=== PATIENT | male | born 1940 | race Two or more races ===

== ENCOUNTER 2016-10-30 16:07 | Emergency (ER) | payer OTHER ==
[~2016-10-30] VITALS: Ht 167.6 cm; Wt 84.0 kg
[~2016-10-30 16:07] MED LIST: ALPHAGAN P100 DROP/5 BOTH EYES; ALTACE10 MG PO; ASPIRIN81 M2 PO; ATENOLOL100 MG PO; ATENOLOL50 MG PO; Aspirin E.C. PO; B COMPLETE1 EACH PO; DAILY VITAMIN1 EAC8 PO; IMDUR30 MG PO; ISOSORBIDE MONO30 MG PO; LIPITOR10 MG PO; LUMIGAN 0.50 DROP/22 BOTH EYES; MOTRIN IB200 MG PO; NITROSTAT0.4 MG SL; NORVASC10 MG PO; PRED FORTE100 DROP/5 BOTH EYES; SINEMET 25-1001 EACH PO; TENORMIN100 MG PO; TENORMIN50 MG PO
[2016-10-30 17:34] LABS: CHLORIDE 106 mEq/L (99-109); POTASSIUM 4.6 mEq/L (3.7-5.4); SODIUM 138 mEq/L (136-147)
[2016-10-30 17:36] LABS: GLUCOSE 91 mg/dL (70-99)
[2016-10-30 17:37] LABS: ANION GAP 10 MEQ/L (2-14)
[2016-10-30 17:40] LABS: GFR ESTIMATE (CALCULATED) > 59 mL/min/
[2016-10-30 17:41] LABS: UREA NITROGEN (BUN) 28 mg/dL (9-23)
[2016-10-30 17:42] LABS: CREATINE KINASE 127 IU/L (1-294)
[2016-10-30] MEDS ORDERED: ULTRAM50 MG PO (18:06)
[2016-10-30] MEDS ORDERED: MOTRIN600 MG PO (18:06)
[2016-10-30 18:26] VITALS: BP 160/93
== END 2016-10-30 18:27 | disposition home or self-care (01) ==
LOC: EME 16:07
PROVIDERS: Physician Assistant
DX: S76.112A Strain of left quadriceps muscle, fascia and tendon, initial encounter (principal); E78.5 Hyperlipidemia, unspecified; I10 Essential (primary) hypertension; I25.2 Old myocardial infarction
CPT/HCPCS: 80048; 82550; 99281; 99283; J3010

== ENCOUNTER 2017-03-31 17:24 | Emergency (ER) | payer OTHER ==
[~2017-03-31] VITALS: Ht 167.6 cm; Wt 85.9 kg
[~2017-03-31 17:24] MED LIST changes: +MOTRIN600 MG PO; +ULTRAM50 MG PO
[2017-03-31 18:41] LABS: HEMATOCRIT 44.3 % (38.0-50.0); MCH 27.9 PG (29.0-34.0); MCHC 33.4 G/DL (30.0-36.0); MCV 83.6 FL (86-99); MEAN PLAT.VOLUME 9.4 uM^3 (9.0-12.4); PLATELET COUNT 279 K/uL (156-360); RBC DIS.WIDTH-CV 12.6 % (11.8-14.6); RBC DIS.WIDTH-SD 38.1 % (39-53); WHITE BLOOD COUNT 6.5 K/uL (4.1-10.2)
[2017-03-31 18:53] LABS: CHLORIDE 105 mEq/L (99-109); POTASSIUM 4.1 mEq/L (3.7-5.4); SODIUM 136 mEq/L (136-147)
[2017-03-31 18:55] LABS: GLUCOSE 93 mg/dL (70-99)
[2017-03-31 18:56] LABS: ANION GAP 11 MEQ/L (2-14)
[2017-03-31 18:57] LABS: TOTAL BILIRUBIN 0.3 mg/dL (0.0-1.0)
[2017-03-31 18:59] LABS: ALKALINE PHOSPHATASE 69 IU/L (3-129); GFR ESTIMATE (CALCULATED) > 59 mL/min/
[2017-03-31 19:00] LABS: UREA NITROGEN (BUN) 14 mg/dL (9-23)
[2017-03-31 19:11] LABS: ADD MIUA? YES; BILIRUBIN NEGATIVE; BLOOD SMALL; COLOR COLORLESS ((YELLOW)); GLUCOSE (STRIP) NEGATIVE; KETONES NEGATIVE; LEUKOCYTES NEGATIVE; NITRITE NEGATIVE; PROTEIN (STRIP) NEGATIVE; SPECIFIC GRAVITY 1.006 (1.000-1.030); UROBILINOGEN 0.2 MG/DL (0.2-1.0)
[2017-03-31 19:16] LABS: TROP-I INTERPRETATION NEGATIVE; TROPONIN-I < 0.01 ng/mL (0.0-0.30)
[2017-03-31 19:33] LABS: BACTERIA NONE SEEN /HPF; EPITHELIAL CELLS NONE SEEN /HPF; HYALINE CASTS 0-5 /LPF; MUCUS NONE SEEN /LPF; RED BLOOD CELLS 0-5 /HPF (0-5); UCUL ADDED? NO; WHITE BLOOD CELLS NONE SEEN /HPF (0-5)
[2017-03-31 20:40] VITALS: BP 186/93
== END 2017-03-31 20:45 | disposition home or self-care (01) ==
LOC: EME 17:24
PROVIDERS: Emergency Medicine
DX: G20 Parkinson's disease (principal); R53.1 Weakness; I25.2 Old myocardial infarction; I10 Essential (primary) hypertension; Z95.5 Presence of coronary angioplasty implant and graft; Z88.6 Allergy status to analgesic agent; Z87.891 Personal history of nicotine dependence
CPT/HCPCS: 70450; 71010; 80053; 81003; 84484; 85027; 99281; 99285

== ENCOUNTER 2017-05-24 17:09 | Inpatient (IN) | payer OTHER ==
[~2017-05-24] VITALS: Ht 167.6 cm; Wt 75.3 kg
[2017-05-24] MEDS ORDERED: NORVASC5 MG PO (18:06)
[2017-05-24] MEDS ORDERED: PRAVACHOL40 MG PO (18:07)
[2017-05-24] MEDS ORDERED: COMBIGAN O20 DROP/5 BOTH EYES (18:09)
[2017-05-24] MEDS ORDERED: XALATAN2.5 ML BOTH EYES (18:09)
[2017-05-24 18:10] LABS: EOSINOPHIL (%) 0.2 % (0-5); HEMATOCRIT 43.7 % (38.0-50.0); IMMATURE GRANULOCYTE (%) 0.3 % (0.0-0.7); INSTRUMENT ABS NEUTROPHIL CT 10.5 K/uL; LYMPHOCYTE COUNT 0.8 K/uL (1.0-2.8); MCHC 33.4 G/DL (30.0-36.0); MCV 83.7 FL (86-99); MEAN PLAT.VOLUME 9.2 uM^3 (9.0-12.4); MONOCYTE (%) 7.1 % (3-12); MONOCYTE COUNT 0.9 K/uL (0-0.8); NEUTROPHIL (%) 85.6 % (45-76); NEUTROPHIL COUNT 10.5 K/uL (1.8-6.4); PLATELET COUNT 243 K/uL (156-360); RBC DIS.WIDTH-CV 12.7 % (11.8-14.6); RBC DIS.WIDTH-SD 38.7 % (39-53); RED BLOOD COUNT 5.22 M/uL (4.00-5.50); WHITE BLOOD COUNT 12.3 K/uL (4.1-10.2)
[2017-05-24] MEDS ORDERED: COSOPT EYE DROPS5 ML BOTH EYES (18:10)
[2017-05-24 18:18] LABS: CHLORIDE 102 mEq/L (99-109); POTASSIUM 4.3 mEq/L (3.7-5.4); SODIUM 136 mEq/L (136-147)
[2017-05-24 18:20] LABS: GLUCOSE 117 mg/dL (70-99)
[2017-05-24 18:21] LABS: ANION GAP 13 MEQ/L (2-14)
[2017-05-24 18:22] LABS: TOTAL BILIRUBIN 0.8 mg/dL (0.0-1.0)
[2017-05-24 18:23] LABS: ALKALINE PHOSPHATASE 68 IU/L (3-129)
[2017-05-24 18:24] LABS: GFR ESTIMATE (CALCULATED) 53 mL/min/
[2017-05-24 18:25] LABS: UREA NITROGEN (BUN) 26 mg/dL (9-23)
[2017-05-24 18:27] LABS: LIPASE 53 U/L (1.0-51.0)
[2017-05-24 20:08] LABS: ADD MIUA? NO; BILIRUBIN NEGATIVE; BLOOD NEGATIVE; COLOR YELLOW ((YELLOW)); GLUCOSE (STRIP) NEGATIVE; KETONES NEGATIVE; LEUKOCYTES NEGATIVE; NITRITE NEGATIVE; PROTEIN (STRIP) NEGATIVE; SPECIFIC GRAVITY 1.023 (1.000-1.030); UCUL ADDED? NO; UROBILINOGEN 0.2 MG/DL (0.2-1.0)
[2017-05-24 23:06] LABS: INTER. NORMALIZED RATIO 1.1; PROTHROMBIN TIME 12.2 SEC (10.2-12.9)
[2017-05-24 23:50] VITALS: BP 133/65
[2017-05-24 23:54] LABS: TROP-I INTERPRETATION NEGATIVE; TROPONIN-I < 0.01 ng/mL (0.0-0.30)
[2017-05-25 03:13] LABS: HEMATOCRIT 40.2 % (38.0-50.0); MCH 28.3 PG (29.0-34.0); MCHC 33.6 G/DL (30.0-36.0); MCV 84.3 FL (86-99); MEAN PLAT.VOLUME 9.5 uM^3 (9.0-12.4); PLATELET COUNT 246 K/uL (156-360); RBC DIS.WIDTH-CV 12.9 % (11.8-14.6); RBC DIS.WIDTH-SD 39.8 % (39-53); RED BLOOD COUNT 4.77 M/uL (4.00-5.50); WHITE BLOOD COUNT 14.1 K/uL (4.1-10.2)
[2017-05-25 03:55] LABS: TROP-I INTERPRETATION NEGATIVE; TROPONIN-I 0.01 ng/mL (0.0-0.30)
[2017-05-25 04:25] VITALS: BP 135/64
[2017-05-25 05:34] LABS: INTER. NORMALIZED RATIO 1.2; PROTHROMBIN TIME 13.7 SEC (10.2-12.9)
[2017-05-25 08:23] VITALS: BP 108/57
[2017-05-25 08:56] LABS: ANION GAP 12 MEQ/L (2-14); CHLORIDE 102 MEQ/L (99-109); SAMPLE HEMOLYSIS CHECK 0; SAMPLE ICTERIC CHECK 0; SAMPLE LIPEMIA CHECK 0; SODIUM 135 MEQ/L (136-147)
[2017-05-25 09:02] LABS: GFR ESTIMATE (CALCULATED) > 59 mL/min/; GLUCOSE 106 mg/dL (70-99); UREA NITROGEN (BUN) 21 mg/dL (9-23)
[2017-05-25 11:04] LABS: TROP-I INTERPRETATION NEGATIVE; TROPONIN-I 0.01 ng/mL (0.0-0.30)
[2017-05-25 11:43] VITALS: BP 110/55
[2017-05-25 15:30] VITALS: BP 115/57
[2017-05-25 20:09] VITALS: BP 145/72
[2017-05-25 23:18] VITALS: BP 160/70
[2017-05-26 07:30] VITALS: BP 141/72
[2017-05-26 09:31] LABS: INTER. NORMALIZED RATIO 1.3; PROTHROMBIN TIME 14.6 SEC (10.2-12.9)
[2017-05-26 10:51] VITALS: BP 170/81
[2017-05-26 15:51] VITALS: BP 173/77
[2017-05-26 20:05] VITALS: BP 149/69
[2017-05-26 23:23] VITALS: BP 176/74
[2017-05-27 03:52] VITALS: BP 143/77
[2017-05-27 07:03] LABS: MCH 29.2 PG (29.0-34.0); MCHC 34.2 G/DL (30.0-36.0); MCV 85.5 FL (86-99); MEAN PLAT.VOLUME 9.7 uM^3 (9.0-12.4); PLATELET COUNT 206 K/uL (156-360); RBC DIS.WIDTH-SD 40.2 % (39-53); RED BLOOD COUNT 4.21 M/uL (4.00-5.50); WHITE BLOOD COUNT 7.5 K/uL (4.1-10.2)
[2017-05-27 07:14] LABS: INTER. NORMALIZED RATIO 1.4; PROTHROMBIN TIME 15.9 SEC (10.2-12.9)
[2017-05-27 07:17] LABS: PTT 40.4 SEC (25-37)
[2017-05-27 08:10] VITALS: BP 132/76
[2017-05-27 12:00] VITALS: BP 161/83
[2017-05-27 15:52] VITALS: BP 130/74
[2017-05-27 20:07] VITALS: BP 156/76
[2017-05-27 23:44] VITALS: BP 151/71
[2017-05-28 04:10] VITALS: BP 141/68
[2017-05-28 06:33] LABS: INTER. NORMALIZED RATIO 1.6; PROTHROMBIN TIME 17.9 SEC (10.2-12.9)
[2017-05-28 06:47] LABS: ANION GAP 5 MEQ/L (2-14); CHLORIDE 102 MEQ/L (99-109); GFR ESTIMATE (CALCULATED) > 59 mL/min/; GLUCOSE 92 mg/dL (70-99); POTASSIUM 3.9 MEQ/L (3.7-5.4); SAMPLE HEMOLYSIS CHECK 0; SAMPLE ICTERIC CHECK 0; SAMPLE LIPEMIA CHECK 0; SODIUM 135 MEQ/L (136-147); UREA NITROGEN (BUN) 16 mg/dL (9-23)
[2017-05-28 08:39] VITALS: BP 135/68
[2017-05-28 10:46] VITALS: BP 132/69
[2017-05-28 20:03] VITALS: BP 128/69
[2017-05-28 23:45] VITALS: BP 152/72
[2017-05-29 06:23] LABS: HEMATOCRIT 37.6 % (38.0-50.0); MCH 28.2 PG (29.0-34.0); MCV 85.5 FL (86-99); MEAN PLAT.VOLUME 9.5 uM^3 (9.0-12.4); PLATELET COUNT 265 K/uL (156-360); RBC DIS.WIDTH-CV 12.8 % (11.8-14.6); RBC DIS.WIDTH-SD 39.8 % (39-53); WHITE BLOOD COUNT 7.5 K/uL (4.1-10.2)
[2017-05-29 08:24] VITALS: BP 107/62
[2017-05-29] MEDS ORDERED: CLOPIDOGREL75 MG PO (14:22)
[2017-05-29] MEDS ORDERED: QUETIAPINE FUMA25 MG PO (14:24)
[2017-05-29] MEDS ORDERED: SERTRALINE HCL25 MG PO (14:24)
== END 2017-05-29 17:36 | disposition home health service (06) | DRG 699 ==
LOC: EME 17:09 → 4EAST 21:50 → EDOF 21:50 → ENRESERV 21:52 → 4EAST 23:34 → CANRESERV 05-26 08:29 → ENRESERV 05-26 08:29 → 5SOUTH 05-26 10:21
PROVIDERS: Emergency Medicine; Hospitalist; Internal Medicine; Internal Medicine Nephrology
DX: N28.0 Ischemia and infarction of kidney (principal); N17.9 Acute kidney failure, unspecified; F33.9 Major depressive disorder, recurrent, unspecified; R65.10 Systemic inflammatory response syndrome (SIRS) of non-infectious origin without acute organ dysfunction; F05 Delirium due to known physiological condition; E78.00 Pure hypercholesterolemia, unspecified; G20 Parkinson's disease; F41.9 Anxiety disorder, unspecified; H40.9 Unspecified glaucoma; H26.9 Unspecified cataract; H54.62 Unqualified visual loss, left eye, normal vision right eye; I34.0 Nonrheumatic mitral (valve) insufficiency; I36.1 Nonrheumatic tricuspid (valve) insufficiency; E66.9 Obesity, unspecified; I25.10 Atherosclerotic heart disease of native coronary artery without angina pectoris; I35.0 Nonrheumatic aortic (valve) stenosis; I73.9 Peripheral vascular disease, unspecified; N18.2 Chronic kidney disease, stage 2 (mild); I12.9 Hypertensive chronic kidney disease with stage 1 through stage 4 chronic kidney disease, or unspecified chronic kidney disease; B34.9 Viral infection, unspecified; Z68.31 Body mass index [BMI] 31.0-31.9, adult; Z79.01 Long term (current) use of anticoagulants; Z95.5 Presence of coronary angioplasty implant and graft; Z88.6 Allergy status to analgesic agent; I25.2 Old myocardial infarction; Z79.82 Long term (current) use of aspirin; Z87.891 Personal history of nicotine dependence
CPT/HCPCS: 70450; 71555; 74177; 80048; 80053; 81003; 83605; 83615; 83690; 84484; 85025; 85027; 85610; 85730; 87040; 87086; 93005; 93306; 99281; 99285; J0696; J7030; J7050

== ENCOUNTER 2017-11-28 06:58 | Emergency (ER) | payer OTHER ==
[~2017-11-28] VITALS: Ht 167.6 cm; Wt 81.9 kg
[~2017-11-28 06:58] MED LIST changes: +CLOPIDOGREL75 MG PO; +COMBIGAN O20 DROP/5 BOTH EYES; +COSOPT EYE DROPS5 ML BOTH EYES; +NORVASC5 MG PO; +PRAVACHOL40 MG PO; +QUETIAPINE FUMA25 MG PO; +SERTRALINE HCL25 MG PO; +XALATAN2.5 ML BOTH EYES
[2017-11-28 07:46] LABS: BASOPHIL (%) 0.8 % (0-1); BASOPHIL COUNT 0.1 K/uL (0-0.1); EOSINOPHIL (%) 3.9 % (0-5); EOSINOPHIL COUNT 0.2 K/uL (0-0.3); HEMATOCRIT 44.7 % (38.0-50.0); HEMOGLOBIN 14.9 G/DL (12.5-16.6); IMMATURE GRANULOCYTE (%) 0.2 % (0.0-0.7); LYMPHOCYTE (%) 29.8 % (15-42); LYMPHOCYTE COUNT 1.8 K/uL (1.0-2.8); MCH 28.3 PG (29.0-34.0); MCHC 33.3 G/DL (30.0-36.0); MONOCYTE (%) 8.5 % (3-12); MONOCYTE COUNT 0.5 K/uL (0-0.8); NEUTROPHIL (%) 56.8 % (45-76); NEUTROPHIL COUNT 3.4 K/uL (1.8-6.4); PLATELET COUNT 232 K/uL (156-360); RBC DIS.WIDTH-CV 12.8 % (11.8-14.6); RBC DIS.WIDTH-SD 39.4 % (39-53); RED BLOOD COUNT 5.26 M/uL (4.00-5.50); WHITE BLOOD COUNT 5.9 K/uL (4.1-10.2)
[2017-11-28 08:10] LABS: CHLORIDE 103 MEQ/L (99-109); POTASSIUM 4.3 MEQ/L (3.7-5.4); SODIUM 138 MEQ/L (136-147)
[2017-11-28 08:16] LABS: GFR ESTIMATE (CALCULATED) > 59 mL/min/ (58.99-99999); GLUCOSE 99 mg/dL (70-99); UREA NITROGEN (BUN) 23 mg/dL (9-23)
[2017-11-28 09:55] VITALS: BP 165/80
== END 2017-11-28 11:19 | disposition home or self-care (01) ==
LOC: EME 06:58
PROVIDERS: Emergency Medicine
DX: R07.0 Pain in throat (principal); R13.10 Dysphagia, unspecified; G20 Parkinson's disease; I10 Essential (primary) hypertension; E78.5 Hyperlipidemia, unspecified; I25.2 Old myocardial infarction; Z95.5 Presence of coronary angioplasty implant and graft; Z79.82 Long term (current) use of aspirin; Z87.891 Personal history of nicotine dependence
CPT/HCPCS: 70360; 71045; 80048; 85025; 87651 90; 93005; 99281; 99285

== ENCOUNTER 2018-02-14 13:10 | Inpatient (IN) | payer OTHER ==
[~2018-02-14] VITALS: Ht 167.6 cm; Wt 87.4 kg
[2018-02-14 14:25] LABS: BASOPHIL (%) 0.7 % (0-1); EOSINOPHIL COUNT 0.1 K/uL (0-0.3); HEMATOCRIT 45.2 % (38.0-50.0); HEMOGLOBIN 15.2 G/DL (12.5-16.6); IMMATURE GRANULOCYTE (%) 0.3 % (0.0-0.7); LYMPHOCYTE (%) 29.5 % (15-42); LYMPHOCYTE COUNT 1.8 K/uL (1.0-2.8); MCH 28.4 PG (29.0-34.0); MCHC 33.6 G/DL (30.0-36.0); MCV 84.5 FL (86-99); MONOCYTE (%) 8.7 % (3-12); MONOCYTE COUNT 0.5 K/uL (0-0.8); NEUTROPHIL (%) 58.8 % (45-76); NEUTROPHIL COUNT 3.6 K/uL (1.8-6.4); PLATELET COUNT 262 K/uL (156-360); RBC DIS.WIDTH-CV 13.2 % (11.8-14.6); RBC DIS.WIDTH-SD 40.9 % (39-53); RED BLOOD COUNT 5.35 M/uL (4.00-5.50); WHITE BLOOD COUNT 6.1 K/uL (4.1-10.2)
[2018-02-14 14:31] LABS: INTER. NORMALIZED RATIO 1.1
[2018-02-14 14:32] LABS: ALBUMIN 4.4 g/dL (3.2-4.8); CHLORIDE 107 mEq/L (99-109); POTASSIUM 4.5 mEq/L (3.7-5.4); SODIUM 140 mEq/L (136-147)
[2018-02-14 14:35] LABS: GLUCOSE 98 mg/dL (70-99); TOTAL PROTEIN 7.7 g/dL (6.4-8.3)
[2018-02-14 14:37] LABS: TOTAL BILIRUBIN 0.5 mg/dL (0.0-1.0)
[2018-02-14 14:38] LABS: ALKALINE PHOSPHATASE 66 IU/L (3-129); CREATININE 1.2 mg/dL (0.6-1.3); GFR ESTIMATE (CALCULATED) > 59 mL/min/ (58.99-99999)
[2018-02-14 14:39] LABS: UREA NITROGEN (BUN) 29 mg/dL (9-23)
[2018-02-14 14:40] LABS: AST (GOT) 25 IU/L (2-34)
[2018-02-14 14:41] LABS: ALT (GPT) 23 IU/L (3-49)
[2018-02-14 16:29] LABS: APPEARANCE CLEAR ((CLEAR)); BILIRUBIN NEGATIVE; BLOOD SMALL; COLOR YELLOW ((YELLOW)); GLUCOSE (STRIP) NEGATIVE; KETONES NEGATIVE; LEUKOCYTES NEGATIVE; NITRITE NEGATIVE; PROTEIN (STRIP) NEGATIVE; SPECIFIC GRAVITY 1.024 (1.000-1.030); UROBILINOGEN 0.2 MG/DL (0.2-1.0)
[2018-02-14 16:34] LABS: BACTERIA NONE SEEN /HPF; EPITHELIAL CELLS NONE SEEN /HPF; MUCUS TRACE /LPF; UCUL ADDED? NO; WHITE BLOOD CELLS 0-5 /HPF (0-5)
[2018-02-14] MEDS ORDERED: ROXICODONE5 MG PO (17:13)
[2018-02-14] MEDS ORDERED: BACLOFEN10 MG PO (17:13)
[2018-02-14] MEDS ORDERED: CENTRUM SILVER1 EAC3 PO (17:13)
[2018-02-14] MEDS ORDERED: COQ-10100 MG PO (17:14)
[2018-02-14 18:19] VITALS: BP 163/79
[2018-02-15 00:34] VITALS: BP 137/65
[2018-02-15 06:54] LABS: HEMATOCRIT 40.2 % (38.0-50.0); MCH 27.5 PG (29.0-34.0); MCHC 32.3 G/DL (30.0-36.0); PLATELET COUNT 238 K/uL (156-360); RBC DIS.WIDTH-CV 13.2 % (11.8-14.6); RBC DIS.WIDTH-SD 40.9 % (39-53); RED BLOOD COUNT 4.73 M/uL (4.00-5.50); WHITE BLOOD COUNT 5.6 K/uL (4.1-10.2)
[2018-02-15 07:14] LABS: CHLORIDE 108 MEQ/L (99-109); CREATININE 0.9 MG/DL (0.6-1.3); GFR ESTIMATE (CALCULATED) > 59 mL/min/ (58.99-99999); GLUCOSE 83 mg/dL (70-99); SODIUM 141 MEQ/L (136-147); UREA NITROGEN (BUN) 21 mg/dL (9-23)
[2018-02-15 07:31] VITALS: BP 150/78
[2018-02-15 08:06] LABS: THYROTROPIN (TSH) 0.89 MIU/L (0.4-5.5)
[2018-02-15 08:15] LABS: FOLIC ACID (FOLATE) 15.9 NG/ML (5.0-22.0)
[2018-02-15 15:24] VITALS: BP 142/71
[2018-02-16 00:17] VITALS: BP 140/70
[2018-02-16 07:23] VITALS: BP 137/77
[2018-02-16 22:55] VITALS: BP 125/65
[2018-02-17 07:15] VITALS: BP 110/64
[2018-02-17 12:24] LABS: HEMATOCRIT 43.7 % (38.0-50.0); HEMOGLOBIN 14.3 G/DL (12.5-16.6); MCH 27.7 PG (29.0-34.0); MCHC 32.7 G/DL (30.0-36.0); MCV 84.7 FL (86-99); PLATELET COUNT 253 K/uL (156-360); RBC DIS.WIDTH-CV 13.1 % (11.8-14.6); RBC DIS.WIDTH-SD 40.2 % (39-53); RED BLOOD COUNT 5.16 M/uL (4.00-5.50); WHITE BLOOD COUNT 5.7 K/uL (4.1-10.2)
[2018-02-17 13:05] LABS: APPEARANCE CLEAR ((CLEAR)); BILIRUBIN NEGATIVE; BLOOD NEGATIVE; COLOR YELLOW ((YELLOW)); GLUCOSE (STRIP) NEGATIVE; KETONES 5; LEUKOCYTES NEGATIVE; NITRITE NEGATIVE; PROTEIN (STRIP) NEGATIVE; SPECIFIC GRAVITY 1.017 (1.000-1.030); UCUL ADDED? NO; UROBILINOGEN 0.2 MG/DL (0.2-1.0)
[2018-02-17 13:26] LABS: CHLORIDE 103 MEQ/L (99-109); CREATININE 0.9 MG/DL (0.6-1.3); GFR ESTIMATE (CALCULATED) > 59 mL/min/ (58.99-99999); POTASSIUM 4.4 MEQ/L (3.7-5.4); SODIUM 137 MEQ/L (136-147); UREA NITROGEN (BUN) 19 mg/dL (9-23)
[2018-02-17 13:28] LABS: GLUCOSE 104 mg/dL (70-99)
[2018-02-17 15:21] VITALS: BP 131/73
[2018-02-18 00:11] VITALS: BP 124/58
[2018-02-18 07:49] VITALS: BP 158/76
[2018-02-18 11:19] LABS: HEMATOCRIT 44.8 % (38.0-50.0); HEMOGLOBIN 14.5 G/DL (12.5-16.6); MCH 27.6 PG (29.0-34.0); MCHC 32.4 G/DL (30.0-36.0); MCV 85.3 FL (86-99); PLATELET COUNT 263 K/uL (156-360); RBC DIS.WIDTH-CV 13.2 % (11.8-14.6); RBC DIS.WIDTH-SD 41.1 % (39-53); RED BLOOD COUNT 5.25 M/uL (4.00-5.50)
[2018-02-18 11:41] LABS: CHLORIDE 103 MEQ/L (99-109); CREATININE 1.1 MG/DL (0.6-1.3); GFR ESTIMATE (CALCULATED) > 59 mL/min/ (58.99-99999); GLUCOSE 161 mg/dL (70-99); POTASSIUM 4.6 MEQ/L (3.7-5.4); SODIUM 139 MEQ/L (136-147); UREA NITROGEN (BUN) 17 mg/dL (9-23)
[2018-02-18] MEDS ORDERED: ENTACAPONE200 MG PO (12:51)
[2018-02-18] MEDS ORDERED: Salonpas 4% Patch TD (12:51)
[2018-02-18] MEDS ORDERED: SERTRALINE HCL50 MG PO (12:51)
[2018-02-18] MEDS ORDERED: ROXICODONE5 MG PO (12:52)
[2018-02-18] MEDS ORDERED: TRAMADOL HCL50 MG PO (12:52)
[2018-02-18] MEDS ORDERED: DIVALPROEX SOD250 MG PO (12:52)
[2018-02-18 15:21] VITALS: BP 128/64
== END 2018-02-18 16:33 | DRG 57 ==
LOC: EME 13:10 → EDOF 17:04 → 5SOUTH 17:04 → ENRESERV 17:05 → 5SOUTH 18:02
PROVIDERS: Emergency Medicine; Internal Medicine; Physician Assistant Medical
DX: G20 Parkinson's disease (principal); E86.0 Dehydration; R53.1 Weakness; I10 Essential (primary) hypertension; E78.5 Hyperlipidemia, unspecified; I25.10 Atherosclerotic heart disease of native coronary artery without angina pectoris; M54.5 Low back pain; R63.3 Feeding difficulties; I73.9 Peripheral vascular disease, unspecified; K59.01 Slow transit constipation; H40.9 Unspecified glaucoma; F43.21 Adjustment disorder with depressed mood; R10.30 Lower abdominal pain, unspecified; M79.651 Pain in right thigh; M79.652 Pain in left thigh; M19.90 Unspecified osteoarthritis, unspecified site; Z91.14 Patient's other noncompliance with medication regimen; Z79.82 Long term (current) use of aspirin; Z79.02 Long term (current) use of antithrombotics/antiplatelets; Z79.899 Other long term (current) drug therapy; Z87.891 Personal history of nicotine dependence; Z95.5 Presence of coronary angioplasty implant and graft
CPT/HCPCS: 72146; 72148; 74177; 80048; 80053; 81003; 82306; 82607; 82746; 84443; 85025; 85027; 85610; 93005; 99281; 99285; J1650; J3010; J7030; J7040